=== PATIENT | female | born 1950 | race Caucasian/White ===

== ENCOUNTER 2016-11-14 11:51 | Inpatient (IN) ==
--- NOTE | 2016-11-13 21:10 | Discharge Summary ---
<Lita Lafleur - Last Filed: 11/14/16 13:54> Date of Encounter: 11/14/16 - Discharge Diagnosis (1) Hip arthritis Priority: Primary Status: Acute (2) Obesity Priority: Secondary Status: Chronic Qualifiers: Obesity type: unspecified obesity type Obesity severity: unspecified obesity severity Qualified Code(s): E66.9 - Obesity, unspecified - Discharge Medications Home Medications: Aspirin Enteric Coated [Aspirin EC] 325 mg PO DAILY #21 tablet.dr 11/13/16 [Rx] OxyCODONE Immed Rel [Roxicodone 5 MG] 5 - 10 mg PO Q6HR PRN #40 tablet 11/13/16 [Rx] Cholecalciferol (D-3) [Vitamin D] 1,000 unit PO DAILY 11/14/16 [History] Diclofenac Sodium [Voltaren] 75 mg PO BID 11/14/16 [History] Multivitamin [One Daily Essential] 1 each PO DAILY 11/14/16 [History] Naproxen Sodium [Aleve] 220 mg PO BID 11/14/16 [History] Vitamin A 10,000 unit PO DAILY 11/14/16 [History] Vitamin E 1,000 unit PO DAILY 11/14/16 [History] Allergies/Adverse Reactions: Allergies No Known Allergies Allergy (Verified 11/14/16 12:28) Primary care physician: Varun Gruber MD - Patient Status Disposition: Home, Self-Care Condition: Good - Discharge Instructions Follow Up With: Fernie Gonzales MD [Partnered Physician] - Varun Gruber MD [Primary Care Provider] - Additional Instructions: Discharge Instructions: Total Hip Replacement Please call [facility] ([phone]), your Primary Care Physician, or report to the Emergency Room if you have any of the following symptoms: Nausea, vomiting, fever greater that 101.5, swelling, chest pain, shortness of breath, increased pain/redness/drainage/odor for your incision site, numbness/ tingling, or any other concerning symptoms. ACTIVITY:Weight-bearing as tolerated for 8 weeks with hip dislocation precautions that physical therapy taught you. You may progress as tolerated under the guidance of your physical therapist. You do not need to sleep with a pillow between your legs. You can also seep on the operative side or on your stomach. MEDICATIONS: Upon discharge resume your home medications. Take all the medications as prescribed. Take a stool softener if taking narcotic pain medications. Stool softeners are only effective if you drink enough fluids. Drink 6-8 glass of water or fluids a day, unless this is not allowed for another health problem. Despite using stool softeners, if you haven't had a bowel movement in 3 days, please switch to a gentle laxative. Gentle laxatives are sold over the counter. You should have a bowel movement within 24 hours, if not call the office. You will be discharged from the hospital with a prescription for pain medication. You are encouraged to decrease the use of narcotic pain medication as tolerated. Should you require a refill, please call the office. [facility] prescribes narcotic pain medication for only 4-6 weeks after surgery. If you require pain medication beyond this time periord, you may be referred to your Primary Care Physician or to the Pain Clinic for further evaluation. Plan ahead for refills on pain medication as many narcotics either need to be picked up at the office or mailed. It is best to call 48-72 hours in advance of needing a prescription refill so you don't run out of medication. To help control the post-operative pain, you may take NSAIDs (Aleve,Advil, Motrin, ibuprofen, naprosyn) or Tylenol as prescribed on the bottle in addition to the pain medication. ANTICOAGULATION (blood thinners): Continue your Aspirin, Lovenox or Coumadin as prescribed to help prevent a blood clot in the leg or in the lungs. As long as your incision remains dry and you tolerate the NSAIDs (Aleve, Advil, Motrin, ibuprofen, naprosyn), it is OK to use the NSAIDS while you are taking your anticoagulation medication. Should your incision start to drain, stop the NSAID and contact our office. Common symptoms of blood clot in the legs include: localized pain, swelling, calf tenderness, redness or discoloration of the skin. Blood clot in the lung symptoms include: shortness of breath, rapid pulse, sweating, and chest pain that worsens with deep breathing, coughing up blood, lightheadedness, feelings of anxiety. If you experience any of these symptoms notify your physician immediately, go to the emergency room, or if having trouble breathing, call 911. WOUND CARE: Leave the dressing on for 7 days. You may change the dressing if it is saturated greater than 50%. You can shower but not a tub bath or submerge your incision in water. Wash your hands with antibacterial soap, rinse and dry prior to any wound care. If you have rubina the visiting nurse or rehab facility can remove the stapes 10-14 days after surgery and place steri-strips across the wound. Leave the steri-strips in place until they fall off on their won. You may let water from the shower run on top of the steri-stirips. If you do not have a visiting nurse or rehab facility, you will need to return to the office at 10-14 days for the rubina to be removed. FOLLOW-UP: Please follow up with your surgeon in the orthopedic clinic in 6 weeks from the day of surgery. If you have rubina that need to be removed, you will need to come back to the office in 10-14 days from the day of surgery. - Hospital Course Hospital course: Ms. Paniagua is a 66 year old female - Time Spent with Patient Total time spent providing and/or coordinating discharge services: <Fernie Gonzales - Last Filed: 11/16/16 09:12> Date of Encounter: 11/16/16 Time of Encounter: 09:12 - Discharge Diagnosis (1) Hip arthritis Priority: Primary Status: Acute Primary care physician: Varun Gruber MD - Patient Status Functional capacity at discharge: uses cane/walker Overall status at discharge: patient is progressing back to baseline - Hospital Course Hospital course: Ms. Paniauga is a 66 year old female The patient had an uneventful postoperative course. They received antibiotics and physical therapy and were discharged in stable condition. There will follow -up in the office in 2 weeks. Aspirin DVT prophylaxis - Time Spent with Patient Total time spent providing and/or coordinating discharge services:
--- NOTE | 2016-11-14 12:01 | History & Physical Report ---
Date of Encounter: 11/14/16 Time of Encounter: 12:01 24 Hour HP Update - Instructions Instructions: If the History and Physical is less than 30 days old and was completed prior to A.M. admission and or procedure and has NOT been updated on calendar day of procedure please complete this update prior to performing procedure. - Update Patient reports changes in Medical Condition: No Changes in assessment/condition: No Changes in Medication: No Preop tests/diagnostics Reviewed: Yes Surgery Remains Indicated: Yes Consent for Planned Operative Procedure(s) Verified: Yes - Pre-Operative Checklist Preoperative Checklist Indicated: No Prophylactic Antibiotic Ordered: Yes Is VTE Prophylaxis Indicated?: Yes
[2016-11-14] MEDS ORDERED: CeFAZolin Pre 2,000 MG/100 ML 2,000 MG/100 ML BAG IVPB ONE (12:10)
[2016-11-14] MEDS ORDERED: *HR* Labetalol 100 MG/20 ML MDV IVP PRN (13:03)
[2016-11-14] MEDS ORDERED: *HR* Promethazine 25 MG/ML VIAL IVP PRN (13:03)
[2016-11-14] MEDS ORDERED: Lidocaine -MPF 4% 5 ML AMPUL ONE (13:04)
[2016-11-14] MEDS ORDERED: Ondansetron 4 MG/2 ML VIAL ONE ×2 (13:04→16:21)
[2016-11-14] MEDS ORDERED: *HR* Rocuronium Bromide 50 MG/5 ML VIAL ONE (13:04)
[2016-11-14] MEDS ORDERED: *HR* Succinylcholine 200 MG/10 ML VIAL IVP ONE (13:04)
[2016-11-14] MEDS ORDERED: *HR* FentaNYL (PF) 100 MCG/2 ML VIAL ONE ×3 (13:05→16:19)
[2016-11-14] MEDS ORDERED: *HR* Propofol 200 MG/20 ML VIAL IVP ONE (13:05)
[2016-11-14] MEDS ORDERED: Lidocaine -MPF 2% 2 ML VIAL ONE (13:06)
--- NOTE | 2016-11-14 13:17 | Anesthesia Evaluation PreOp ---
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 MECHANIC History: Denies Any Significant HX Other Medical History: Denies Any Significant HX Anesthesia History: No Prior Anesthetic Complications, Past Anesthesia (btl, r maxilla) Alcohol Use: none Drug use: none Medications and Allergies Aspirin Enteric Coated [Aspirin EC] 325 mg PO DAILY #21 tablet.dr 11/13/16 [Rx] OxyCODONE Immed Rel [Roxicodone 5 MG] 5 - 10 mg PO Q6HR PRN #40 tablet 11/13/16 [Rx] Cholecalciferol (D-3) [Vitamin D] 1,000 unit PO DAILY 11/14/16 [History] Diclofenac Sodium [Voltaren] 75 mg PO BID 11/14/16 [History] HYDROcodone/Acet 5/325 mg [[place] 5-325 mg] 1 tab PO Q6H PRN 11/14/16 [History] Multivitamin [One Daily Essential] 1 each PO DAILY 11/14/16 [History] Naproxen Sodium [Aleve] 220 mg PO BID 11/14/16 [History] Vitamin A 10,000 unit PO DAILY 11/14/16 [History] Vitamin E 1,000 unit PO DAILY 11/14/16 [History] Allergies No Known Allergies Allergy (Verified 11/14/16 12:28) - Meds/Allergy Pre-op Review Medications Reviewed: Yes Allergies Reviewed: Yes Beta Blockers on Current Med List: No Anesthesia Results - Labs Laboratory Tests 11/04/16 11/04/16 11/04/16 11:50 11:50 11:50 Hgb 14.7 Hct 44.8 Plt Count 336 PT 11.1 INR 1.0 APTT 29.8 Sodium 143 Potassium 3.6 Creatinine 0.72 - Imaging EKG: report reviewed (sr/rbbb, lafb) Anesthesia Exam O2 Sat Height 1.6 m Height 1.6 m Height 1.6 m Weight 83.915 kg Weight 83.915 kg Weight 83.915 kg O2 Sat by Pulse Oximetry 97 O2 Sat by Pulse Oximetry 97 Vital Signs Temp Pulse Resp BP Pulse Ox 97.9 F 87 18 168/90 97 11/14/16 12:20 11/14/16 12:20 11/14/16 12:20 11/14/16 12:20 11/14/16 12:20 Height: 1.6 Weight: 89 NPO (# of Hours): >8 - HEENT Pupil (Motor): Pupils equal, EOMI Mallampati: I Teeth: Normal Oral Opening: Greater than 3 - PLUMBING MECHANIC LOC: Oriented PLUMBING MECHANIC Motor: Normal RUE, Normal LUE, Normal RLE, Normal LLE, Normal Face PLUMBING MECHANIC Sensory: Normal: RUE, LUE, RLE, LLE, Face - Cardiac Rhythm: Regular Murmur: None - Pulmonary Breath Sounds: bilateral Clear Respiratory Effort: Symmetrical Anesthesia Assess/Plan ASA Score: 2 Modified Scott Scale for Level of Consciousness: Cooperative, oriented, and tranquil Anesthetic Plan: General Monitoring Plan: Standard Monitors Recovery Plan: PACU
[2016-11-14] MEDS ORDERED: *HR* Magnesium Sulfate 2 GM/50 ML PIGGYBACK IVPB ONE (13:26)
[2016-11-14] MEDS ORDERED: CloNIDine Patch 0.1 MG PATCH (WEEKLY) TD ONE (13:30)
[2016-11-14] MEDS ORDERED: Magnesium Sulfate 2 GM/100 ML PIGGYBACK IVPB ONE (13:45)
[2016-11-14] MEDS ORDERED: Dexamethasone 4 MG/ML VIAL ONE (16:21)
[2016-11-14] MEDS ORDERED: *HR* FentaNYL (PF) 250 MCG/5 ML VIAL ONE (16:24)
[2016-11-14] MEDS: Ringers Solution, Lactated 1,000 ML IVC SCH ×2 (16:26→16:43)
--- NOTE | 2016-11-14 16:41 | Orthopedic Operative Note ---
Date of procedure: 11/14/16 Pre-op diagnosis: Right hip arthritis Post-op diagnosis: same Procedure: Procedure: Right Total Hip Replacment Estimated blood loss: 200 cc Hardware: Biomet DM Cup: 54 G7 fin cup Femoral size 14 echo full profile lateralized stem Head: +3 head with Lupis Procedural Notes: Grade 4 arthritic changes femoral head acetabular socket. Operative procedure: The patient was brought to the operating room and placed on the operating room table. After general anesthesia was administered the patient was placed in the lateral decubitus position with the operative leg up. All pressure points were padded appropriately and the head was stabilized in the neutral position. The operative extremity was prepped and draped in the sterile surgical fashion patient received IV antibiotic prior to skin incision. A standard posterior approach is made to the operative hip, the incision was made through the skin and subcutaneous tissue hemostasis was obtained with Bovie cautery. Using careful sharp dissection the fascia was identified and incised exposing the external rotators. The external rotators were released off the greater trochanter and tagged with #2 FiberWire suture. The capsule was T'd open and the hip was brought into internal rotation. Patient noted to have grade 4 arthritic changes femoral head. The femoral neck cut was made at the appropriate level. An anterior capsulotomy was performed for the anterior retractor. Soft tissues removed from the acetabulum. Patient noted to have grade 4 arthritic changes acetabulum. Acetabulum was first reamed medially, and then reamed in 15 degrees of anteversion and 45 degrees off the horizontal. It was reamed up to the appropriate size 54 The appropriate-sized 54 acetabular cup was impacted in place in 15 degrees of anteversion and 45 degrees off the horizontal. This had good fit and fixation. The hip was brought back in to internal rotation and prepared with the hot box spotter followed by the canal finder followed by broaching process in 20 degrees anteversion. It was broached up to the appropriate size or team The femoral implant was impacted in place in 20 degrees of anteversion. Trial reduction found the hip to be stable with a +3 head and Lupis. The trials were removed and the real implants were impacted in place. The hip was reduced, patient had apparent equal leg lengths. The hip had excellent stability with forward flexion to 90 degrees adduction of 30 degrees and internal rotation of 60 degrees. The hip had no shuck. The hips after 2 minutes with a Betadine saline solution. It was irrigated out with 2 L of pulse irrigation. The external rotators were reattached to drill holes in the greater trochanter. Fascia was closed with a running #2 PDS suture. The deep tissue was irrigated and closed deep with #1 PDS suture superficially with 0 PDS suture and skin was closed with Dermabond and skin rubina. The patient was placed in a sterile dressing and abduction pillow. The patient was extubated and transferred to the recovery room in stable condition. Anesthesia: GETA Surgeon: Fernie Gonzales Condition: stable Disposition: PACU
[2016-11-14] MEDS: *HR* HYDROmorphone (PF) 1 MG/ML SYRINGE IVP PRN ×4 (17:25→17:40)
[2016-11-14 17:41] LABS: Hematocrit 40.5 % (35.3-44.9); Hemoglobin 13.2 g/dL (11.5-15.4)
--- NOTE | 2016-11-14 17:54 | Electrocardiograph Report ---
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
[2016-11-14] MEDS ORDERED: Acetaminophen IV 1,000 MG/100 ML INFUS..BTL ONE (17:55)
[2016-11-14] MEDS ORDERED: Acetaminophen IV 1,000 MG/100 ML INFUS..BTL IVPB ONE (17:56)
[2016-11-14] MEDS ORDERED: Ketorolac 30 MG/ML VIAL IVP ONE (17:57)
[2016-11-14] MEDS ORDERED: *HR* Enoxaparin 30 MG/0.3 ML SYRINGE SQ SCH (18:00)
--- NOTE | 2016-11-14 18:19 | Anesthesia Evaluation Post Op ---
Date of Encounter: 11/14/16 Time of Encounter: 18:18 - Vital Signs Vital Signs: Vital Signs/O2 Sat/Glucose, Most Current Temp Pulse Resp BP Pulse Ox 11/14/16 18:16 72 16 156/89 94 L 11/14/16 18:06 97.5 F L 73 16 171/90 96 11/14/16 17:56 69 16 161/92 98 11/14/16 17:46 81 16 162/83 98 11/14/16 17:36 97.6 F 71 16 163/93 99 11/14/16 17:26 76 16 175/106 99 11/14/16 17:16 74 14 185/101 97 11/14/16 17:06 98.2 F 76 14 183/103 97 - Lungs Lungs: Clear Ascult./Percussion - Airway Airway: Non-obstructed - Cardiovascular Regular Rate - Mental Status Mental Status: Alert & Oriented, Answers Appropriately - Pain Pain Scale: 4 - Nausea Vomiting Nausea Vomiting: Not Present - Hydration Hydration: Ice chips - Discharge PostOp Status: Transfer Patient to floor
[2016-11-14] MEDS ORDERED: Acetaminophen 325 MG TABLET PO PRN (18:27)
[2016-11-14] MEDS ORDERED: *HR* HYDROmorphone (PF) 1 MG/ML SYRINGE IVP PRN (18:27)
[2016-11-14] MEDS ORDERED: MOM Conc 10 ML UD.LIQ PO PRN (18:27)
[2016-11-14] MEDS ORDERED: Sennosides 8.6 MG TABLET PO PRN (18:27)
[2016-11-14] MEDS ORDERED: Naloxone 0.4 MG/ML INJ IVP PRN (18:27)
[2016-11-14] MEDS ORDERED: Ringers Solution, Lactated 1,000 ML IVC SCH (18:27)
[2016-11-14] MEDS ORDERED: *HR* OxyCODONE Immed Rel 5 MG TABLET PO PRN (18:27)
[2016-11-14] MEDS ORDERED: Ondansetron 4 MG/2 ML VIAL IVP PRN (18:27)
[2016-11-14] MEDS ORDERED: Temazepam 15 MG CAPSULE PO PRN (18:27)
[2016-11-14] MEDS: Diclofenac Sodium 75 MG TABLET PO SCH (20:16)
[2016-11-14] MEDS: *HR* OxyCODONE Immed Rel 5 MG TABLET PO PRN (20:17)
[2016-11-14] MEDS: Ascorbic Acid 500 MG TABLET PO SCH (20:17)
[2016-11-15] MEDS: ceFAZolin 2,000 MG in D5% in Water 100 ML IVPB SCH ×2 (00:20→10:50)
[2016-11-15] MEDS: *HR* OxyCODONE Immed Rel 5 MG TABLET PO PRN ×4 (03:26→20:01)
[2016-11-15] MEDS: *HR* Enoxaparin 30 MG/0.3 ML SYRINGE SQ SCH ×2 (05:21→17:19)
[2016-11-15 06:15] LABS: Hematocrit 38.1 % (35.3-44.9); Hemoglobin 12.2 g/dL (11.5-15.4)
[2016-11-15 06:35] LABS: BUN/Creatinine Ratio 31 (6-26); Blood Urea Nitrogen 22 mg/dL (7-20); Calcium 8.6 mg/dL (8.6-10.8); Carbon Dioxide 24 mEq/L (19-29); Chloride 107 mEq/L (98-109); Glucose 131 mg/dL (70-99); Osmolality,Calculated 293 (280-300); Potassium 4.3 mEq/L (3.5-4.5); Sodium 139 mEq/L (136-145); eGFR For African Americans > 60 (> 60); eGFR For Non-African Americans > 60 (> 60)
--- NOTE | 2016-11-15 06:49 | Orthopedics Progress Note ---
Date of Encounter: 11/15/16 Time of Encounter: 06:48 - Assessment and Plan (1) Hip arthritis Current Visit: Yes Status: Acute Subjective Interval history: Patient was seen this morning doing well without complaints. Afebrile vital signs stable. Operative extremity: Neurovascularly intact Dressing clean dry and intact Calves nontender Assessment and plan: Continue with postoperative care Hematocrit 38 Objective Vital signs: Vital Signs Temp Pulse Resp BP Pulse Ox 11/15/16 04:00 97.5 F L 79 17 111/56 98 11/15/16 00:00 97.7 F 80 16 115/58 97 11/14/16 21:00 97.6 F 82 16 114/56 97 11/14/16 20:12 97.6 F 82 16 114/56 97 11/14/16 18:35 77 18 141/84 94 L 11/14/16 18:16 72 16 156/89 94 L 11/14/16 18:06 97.5 F L 73 16 171/90 96 11/14/16 17:56 69 16 161/92 98 11/14/16 17:46 81 16 162/83 98 11/14/16 17:36 97.6 F 71 16 163/93 99 11/14/16 17:26 76 16 175/106 99 11/14/16 17:16 74 14 185/101 97 11/14/16 17:06 98.2 F 76 14 183/103 97 11/14/16 12:22 97.9 F 87 18 168/90 97 11/14/16 12:20 97.9 F 87 18 168/90 97 Intake and Output 11/14/16 11/14/16 11/15/16 15:59 23:59 07:59 Intake Total 1500 / 1500 Output Total 900 / 900 Balance 600 / 600 Intake: IV Fluids 1500 / 1500 Lactated Ringers 1,000 ML 1400 / 1400 @ 75 mls/hr IVC .[id number] Rx#:[id number] Ancef Premix 2,000 MG/100 100 / 100 ML 2,000 mg In 100 ml @ 200 mls/hr IVPB PREOP ONE Rx#:[id number] Output: Urine 600 / 600 Estimated Blood Loss 300 / 300 Other: Weight 83.915 kg - Labs CBC & BMP: 11/15/16 05:28 01/03/17 05:28 Labs: Abnormal lab results BUN 22 mg/dL (7-20) H 11/15/16 05:28 BUN/Creatinine Ratio 31 (6-26) H 11/15/16 05:28 Glucose 131 mg/dL (70-99) H 11/15/16 05:28 - VTE Documentation of Mechanical Device: Venous foot pump, device Consult Discharge Plan - Plan Referrals: Varun Gruber MD [Primary Care Provider] -
[2016-11-15] MEDS: Diclofenac Sodium 75 MG TABLET PO SCH ×2 (08:51→19:39)
[2016-11-15] MEDS: Ascorbic Acid 500 MG TABLET PO SCH ×2 (08:52→17:19)
[2016-11-15] MEDS ORDERED: (Vitamin A [Vitamin A] 10,000 UNIT) PO SCH (09:00)
[2016-11-15] MEDS ORDERED: Cholecalciferol (D-3) 1,000 UNIT TABLET PO SCH (09:00)
[2016-11-15] MEDS ORDERED: Multivit/Ca/Min/Fe/FA 1 TAB TABLET PO SCH (09:00)
[2016-11-15] MEDS ORDERED: (Vitamin E [Vitamin E] 1,000 UNIT) PO SCH (09:00)
[2016-11-15] MEDS ORDERED: NON-FORMULARY MEDICATION 1 EACH EACH (Multivitamin [One Daily Essential] 1 EACH) PO SCH (09:00)
[2016-11-16] MEDS: *HR* Enoxaparin 30 MG/0.3 ML SYRINGE SQ SCH (05:22)
[2016-11-16 06:59] LABS: Hematocrit 31.4 % (35.3-44.9)
[2016-11-16 07:03] VITALS: BP 125/59
[2016-11-16 07:12] LABS: Hemoglobin 10.3 g/dL (11.5-15.4)
[2016-11-16 07:13] LABS: BUN/Creatinine Ratio 32 (6-26); Blood Urea Nitrogen 21 mg/dL (7-20); Calcium 8.3 mg/dL (8.6-10.8); Carbon Dioxide 23 mEq/L (19-29); Chloride 110 mEq/L (98-109); Glucose 97 mg/dL (70-99); Osmolality,Calculated 293 (280-300); Potassium 3.8 mEq/L (3.5-4.5); Sodium 140 mEq/L (136-145); eGFR For African Americans > 60 (> 60); eGFR For Non-African Americans > 60 (> 60)
[2016-11-16] MEDS ORDERED: FLU VACC QS2016-17 36MOS UP/PF 0.5 ML SYRINGE IM ONE (08:54)
--- NOTE | 2016-11-16 09:13 | Orthopedics Progress Note ---
Date of Encounter: 11/16/16 Time of Encounter: 09:13 - Assessment and Plan (1) Hip arthritis Current Visit: Yes Status: Acute Subjective Interval history: Patient was seen this morning doing well without complaints. Afebrile vital signs stable. Operative extremity: Neurovascularly intact Dressing clean dry and intact Calves nontender Assessment and plan: Continue with postoperative care Hematocrit 31 discharge home Objective Vital signs: Vital Signs Temp Pulse Resp BP Pulse Ox 11/16/16 07:02 98.2 F 70 16 125/59 98 11/16/16 01:18 97.8 F 83 15 135/76 97 11/15/16 19:43 98.0 F 86 16 133/79 94 L 11/15/16 15:27 98.3 F 81 16 122/74 97 11/15/16 12:48 70 18 130/85 94 L 11/15/16 11:29 97.8 F 70 18 130/85 94 L Intake and Output 11/15/16 11/16/16 11/16/16 23:59 07:59 15:59 Output Total 900 / 900 Balance -900 / -900 Output: Urine 900 / 900 - Labs CBC & BMP: 11/16/16 06:24 11/16/16 06:24 Labs: Abnormal lab results Hgb 10.3 g/dL (11.5-15.4) L D 11/16/16 06:24 Hct 31.4 % (35.3-44.9) L 11/16/16 06:24 Chloride 110 mEq/L (98-109) H 11/16/16 06:24 BUN 21 mg/dL (7-20) H 11/16/16 06:24 BUN/Creatinine Ratio 32 (6-26) H 11/16/16 06:24 Calcium 8.3 mg/dL (8.6-10.8) L 11/16/16 06:24 - VTE Documentation of Mechanical Device: Venous foot pump, device Consult Discharge Plan - Plan Additional Instructions: Discharge Instructions: Total Hip Replacement Please call [facility] ([phone]), your Primary Care Physician, or report to the Emergency Room if you have any of the following symptoms: Nausea, vomiting, fever greater that 101.5, swelling, chest pain, shortness of breath, increased pain/redness/drainage/odor for your incision site, numbness/ tingling, or any other concerning symptoms. ACTIVITY:Weight-bearing as tolerated for 8 weeks with hip dislocation precautions that physical therapy taught you. You may progress as tolerated under the guidance of your physical therapist. You do not need to sleep with a pillow between your legs. You can also seep on the operative side or on your stomach. MEDICATIONS: Upon discharge resume your home medications. Take all the medications as prescribed. Take a stool softener if taking narcotic pain medications. Stool softeners are only effective if you drink enough fluids. Drink 6-8 glass of water or fluids a day, unless this is not allowed for another health problem. Despite using stool softeners, if you haven't had a bowel movement in 3 days, please switch to a gentle laxative. Gentle laxatives are sold over the counter. You should have a bowel movement within 24 hours, if not call the office. You will be discharged from the hospital with a prescription for pain medication. You are encouraged to decrease the use of narcotic pain medication as tolerated. Should you require a refill, please call the office. [facility] prescribes narcotic pain medication for only 4-6 weeks after surgery. If you require pain medication beyond this time periord, you may be referred to your Primary Care Physician or to the Pain Clinic for further evaluation. Plan ahead for refills on pain medication as many narcotics either need to be picked up at the office or mailed. It is best to call 48-72 hours in advance of needing a prescription refill so you don't run out of medication. To help control the post-operative pain, you may take NSAIDs (Aleve,Advil, Motrin, ibuprofen, naprosyn) or Tylenol as prescribed on the bottle in addition to the pain medication. ANTICOAGULATION (blood thinners): Continue your Aspirin, Lovenox or Coumadin as prescribed to help prevent a blood clot in the leg or in the lungs. As long as your incision remains dry and you tolerate the NSAIDs (Aleve, Advil, Motrin, ibuprofen, naprosyn), it is OK to use the NSAIDS while you are taking your anticoagulation medication. Should your incision start to drain, stop the NSAID and contact our office. Common symptoms of blood clot in the legs include: localized pain, swelling, calf tenderness, redness or discoloration of the skin. Blood clot in the lung symptoms include: shortness of breath, rapid pulse, sweating, and chest pain that worsens with deep breathing, coughing up blood, lightheadedness, feelings of anxiety. If you experience any of these symptoms notify your physician immediately, go to the emergency room, or if having trouble breathing, call 911. WOUND CARE: Leave the dressing on for 7 days. You may change the dressing if it is saturated greater than 50%. You can shower but not a tub bath or submerge your incision in water. Wash your hands with antibacterial soap, rinse and dry prior to any wound care. If you have rubina the visiting nurse or rehab facility can remove the stapes 10-14 days after surgery [address] steri-strips across the wound. Leave the steri-strips in place until they fall off on their won. You may let water from the shower run on top of the steri-stirips. If you do not have a visiting nurse or rehab facility, you will need to return to the office at 10-14 days for the rubina to be removed. FOLLOW-UP: Please follow up with your surgeon in the orthopedic clinic in 6 weeks from the day of surgery. If you have rubina that need to be removed, you will need to come back to the office in 10-14 days from the day of surgery. Referrals: Fernie Gonzales MD [Partnered Physician] - Varun Gruber MD [Primary Care Provider] -
[2016-11-16] MEDS: *HR* OxyCODONE Immed Rel 5 MG TABLET PO PRN (11:07)
== END 2016-11-16 12:05 | disposition home or self-care (01) | DRG 470 ==
LOC: SAMDAY 11:51 → 3NENU 18:26
PROVIDERS: ADMIT Orthopaedic Surgery; ATTEND Orthopaedic Surgery